=== PATIENT | male | born 1985 | race Two or more races ===

== ENCOUNTER 2019-04-24 09:42 | Day surgery (SDC) | payer OTHER ==
[2019-04-24] MEDS ORDERED: PERCOCET 5-3251 EACH PO (12:51)
[2019-04-24] MEDS ORDERED: NEURONTIN600 M1 PO (12:52)
[2019-04-24] MEDS ORDERED: COLACE100 MG PO (12:52)
== END 2019-04-24 14:55 | disposition home or self-care (01) ==
LOC: CIR.AMB 09:42
DX: K42.0 Umbilical hernia with obstruction, without gangrene (principal)